=== PATIENT | female | born 1945 | race Caucasian/White ===

== ENCOUNTER 2017-04-08 07:06 | Day surgery (SDC) | payer MEDICARE, OTHER ==
[~2017-04-08] VITALS: Ht 162.6 cm; Wt 80.3 kg
[~2017-04-08 07:06] MED LIST: BREO1INH INH; ESTR3TA PO; MIRA0.5T PO; SING10TA32 PO; VITA1CAP40 PO
[2017-04-08] MEDS ORDERED: NS 500 ML IV ONE (07:30)
[2017-04-08] MEDS ORDERED: LIDOCAINE 2% INJ 100 MG/5 ML SDV (FOR ANES.) As Ordered ONE (08:24)
[2017-04-08] MEDS ORDERED: PROPOFOL 200 MG/20 ML VIAL As Ordered ONE (08:24)
--- NOTE | 2017-04-08 08:37 | ROOR ---
Patient Name: Lyn Avendaño Procedure Date: 04/08/2017 8:17 AM Date of : 1945 Age: 71 Room: [facility] Gender: Female Note Status: Finalized Procedure: Colonoscopy Indications: Screening for colorectal malignant neoplasm Providers: Jl SOTO MD Referring MD: MICHELLE JOHN MD Requesting Provider: Medicines: Monitored Anesthesia Care Complications: No immediate complications. Procedure: Pre-Anesthesia Assessment: - The heart rate, respiratory rate, oxygen saturations, blood pressure, adequacy of pulmonary ventilation, and response to care were monitored throughout the procedure. The Colonoscope was introduced through the anus and advanced to the terminal ileum, with identification of the appendiceal orifice and IC valve. The colonoscopy was performed without difficulty. The patient tolerated the procedure well. The quality of the bowel preparation was good. Findings: The perianal and digital rectal examinations were normal. (Exam: Complete, Prep: Good or Excellent.) A 4 mm polyp was found in the sigmoid colon. The polyp was sessile. The polyp was removed with a cold snare. Resection and retrieval were complete. Mild diverticulosis and small internal hemorrhoids. The exam was otherwise without abnormality on direct and retroflexion views. Impression: - (Exam: Complete, Prep: Good or Excellent.) - One 4 mm polyp in the sigmoid colon, removed with a cold snare. Resected and retrieved. - Mild diverticulosis and small internal hemorrhoids. - The examination was otherwise normal on direct and retroflexion views. Recommendation: - Repeat colonoscopy in 5 years for surveillance. - Telephone endoscopist for pathology results in 2 weeks. Jl Soto MD Jl SOTO MD 04/08/2017 8:37:19 AM This report has been signed electronically. Number of Addenda: 0 Note Initiated On: 04/08/2017 8:17 AM Estimated Blood Loss: Estimated blood loss: none.
[2017-04-08 09:01] VITALS: BP 167/94
== END 2017-04-08 09:03 | disposition home or self-care (01) ==
LOC: M OPP 07:06
PROVIDERS: ATTEND Internal Medicine Gastroenterology
DX: Z12.11 Encounter for screening for malignant neoplasm of colon (principal); D12.5 Benign neoplasm of sigmoid colon; K57.30 Diverticulosis of large intestine without perforation or abscess without bleeding; K64.8 Other hemorrhoids; M19.90 Unspecified osteoarthritis, unspecified site; J45.909 Unspecified asthma, uncomplicated; G25.81 Restless legs syndrome; Z88.0 Allergy status to penicillin; Z88.8 Allergy status to other drugs, medicaments and biological substances; Z79.899 Other long term (current) drug therapy; Z80.8 Family history of malignant neoplasm of other organs or systems; Z80.1 Family history of malignant neoplasm of trachea, bronchus and lung

== ENCOUNTER → 2019-01-05 | Outpatient (CLI) | payer MEDICARE, OTHER ==
[~2019-01-05] MED LIST changes: -VITA1CAP40 PO; +VITA50005 PO
--- NOTE | 2019-01-05 09:22 | REP ---
PA and lateral chest: Comparison is 04/21/2016. The lung rios are chronically hyperinflated, unchanged. There are no infiltrates or effusions. There are no masses or nodules. Cardiac size is normal. The eveline, mediastinum, skeletal structures are unremarkable. Impression: Chronic hyperinflation. There are no acute cardiopulmonary findings. Electronically Signed by Siva Pina MD 01/05/2019 09:13 A
== END ==
LOC: M WUC 08:49
PROVIDERS: ATTEND Internal Medicine
DX: J45.909 Unspecified asthma, uncomplicated (principal)

== ENCOUNTER → 2019-08-14 | Outpatient (CLI) | payer MEDICARE, OTHER ==
--- NOTE | 2019-08-14 17:38 | REP ---
Chest x-ray: Two views. History: Cough and shortness of breath. Comparison chest x-ray: January 05, 2019. Findings: There is linear fibrosis in the right lower lobe unchanged. There is plate-like atelectasis in the left base which is a new finding from the prior study. Lung rios are otherwise clear. Pulmonary vasculature is not increased. Heart is not enlarged. Aorta is calcific. Impression: New plate-like atelectasis left base. Linear fibrosis right base unchanged. No other evidence of infiltrate. Electronically Signed by Esequiel Pinzon MD 08/14/2019 05:29 P
== END ==
LOC: M WUC 16:47
PROVIDERS: ATTEND Internal Medicine
DX: J98.11 Atelectasis (principal); J84.10 Pulmonary fibrosis, unspecified; R06.02 Shortness of breath

== ENCOUNTER → 2019-11-10 | Outpatient (CLI) | payer MEDICARE, OTHER ==
[2019-11-14 23:07] LABS: D001-IgE D pteronyssinus <0.10 kU/L (Class 0); E001-IgE Cat Epith/Dander < 0.10 kU/L (Class 0); E005-IgE Dog Dander < 0.10 kU/L (Class 0); G002-IgE Bermuda Grass < 0.10 kU/L (Class 0); G008-IgE Kentucky Bluegrass < 0.10 kU/L (Class 0); M001-IgE Penicillium chrysogen < 0.10 kU/L (Class 0); M002 IgE Cladosporium herbaru < 0.10 kU/L (Class 0); M003 IgE Aspergillus fumigatu < 0.10 kU/L (Class 0); M006-IgE Alternaria alternata < 0.10 kU/L (Class 0); T001-IgE Maple/Box Elder < 0.10 kU/L (Class 0); T003-IgE Common Silver Birch < 0.10 kU/L (Class 0); T006-IgE Cedar, Mountain < 0.10 kU/L (Class 0); T007-IgE Oak, White < 0.10 kU/L (Class 0); T008-IgE Elm, American < 0.10 kU/L (Class 0); T015-IgE Ash, White < 0.10 kU/L (Class 0); T041-IgE Hickory, White < 0.10 kU/L (Class 0); T070-IgE White Mulberry < 0.10 kU/L (Class 0); W001-IgE Ragweed, Short < 0.10 kU/L (Class 0); W009-IgE Plantain, English < 0.10 kU/L (Class 0); W014-IgE Pigweed, Rough < 0.10 kU/L (Class 0); W018-IgE Sheep Sorrel < 0.10 kU/L (Class 0)
== END ==
LOC: M WUC 09:54
PROVIDERS: ATTEND Internal Medicine Pulmonary Disease
DX: J45.40 Moderate persistent asthma, uncomplicated (principal)

== ENCOUNTER 2020-01-04 13:56 | Outpatient (CLI) | payer MEDICARE, OTHER ==
[~2020-01-04] VITALS: Ht 170.2 cm; Wt 89.4 kg
[2020-01-04 14:26] VITALS: BP 149/74
[2020-01-04] MEDS ORDERED: BENRALIZUMAB (FASENRA) 30MG/ML SYRINGE (J0517 PER 1MG) SC ONE (14:30)
[2020-01-04 15:15] VITALS: BP 129/76
[2020-03-07] MEDS ORDERED: VENL150C43 PO (14:44)
[2020-03-07] MEDS ORDERED: FLUTISP (14:44)
[2020-03-07] MEDS ORDERED: FASE30IN SC (14:44)
[2020-03-07] MEDS ORDERED: ADV500INH INH (14:44)
== END 2020-01-04 15:20 | disposition home or self-care (01) ==
LOC: M INFU 13:56
PROVIDERS: ATTEND Internal Medicine Pulmonary Disease
DX: J45.50 Severe persistent asthma, uncomplicated (principal)
CPT/HCPCS: 96372; J0517

== ENCOUNTER 2020-02-01 14:00 | Outpatient (CLI) | payer MEDICARE, OTHER ==
[2020-02-01] MEDS ORDERED: BENRALIZUMAB (FASENRA) 30MG/ML SYRINGE (J0517 PER 1MG) ONE (14:01)
[2020-03-07] MEDS ORDERED: VENL150C43 PO (14:44)
[2020-03-07] MEDS ORDERED: ADV500INH INH (14:44)
[2020-03-07] MEDS ORDERED: FLUTISP (14:44)
[2020-03-07] MEDS ORDERED: FASE30IN SC (14:44)
== END 2020-02-01 14:45 ==
LOC: M INFU 14:00
PROVIDERS: ATTEND Internal Medicine Pulmonary Disease
DX: J45.50 Severe persistent asthma, uncomplicated (principal)
CPT/HCPCS: 96372; J0517

== ENCOUNTER 2020-02-29 13:53 | Outpatient (CLI) | payer MEDICARE, OTHER ==
[~2020-02-29] VITALS: Ht 170.2 cm; Wt 89.0 kg
[2020-02-29] MEDS ORDERED: BENRALIZUMAB (FASENRA) 30MG/ML SYRINGE (J0517 PER 1MG) SC ONE (14:00)
[2020-02-29 14:24] VITALS: BP 140/74
[2020-02-29] MEDS ORDERED: CLAR10CA3 PO (14:24)
[2020-02-29 14:30] VITALS: BP 141/67
[2020-03-07] MEDS ORDERED: ADV500INH INH (14:44)
[2020-03-07] MEDS ORDERED: FASE30IN SC (14:44)
[2020-03-07] MEDS ORDERED: FLUTISP (14:44)
[2020-03-07] MEDS ORDERED: VENL150C43 PO (14:44)
== END 2020-02-29 14:30 | disposition home or self-care (01) ==
LOC: M INFU 13:53
PROVIDERS: ATTEND Internal Medicine Pulmonary Disease
DX: J45.50 Severe persistent asthma, uncomplicated (principal)
CPT/HCPCS: 96372; J0517

== ENCOUNTER → 2020-03-09 | Outpatient (CLI) | payer MEDICARE, OTHER ==
[~2020-03-09] MED LIST changes: +ADV500INH INH; +CLAR10CA3 PO; +FASE30IN SC; +FLUTISP; +VENL150C43 PO
== END ==
LOC: M LABSMTC 11:04
PROVIDERS: ATTEND Ophthalmology
DX: Z01.812 Encounter for preprocedural laboratory examination (principal); Z20.828 Contact with and (suspected) exposure to other viral communicable diseases
CPT/HCPCS: C9803; U0003

== ENCOUNTER 2020-03-14 09:42 | Day surgery (SDC) | payer MEDICARE, OTHER ==
[~2020-03-14] VITALS: Ht 167.6 cm; Wt 86.2 kg
[~2020-03-14 09:42] MED LIST changes: +DUOVISC (0.50ML VISCOAT/0.55ML PROVISC) OPHTH KIT As Ordered ONE; +OFLOXACIN 0.3 % (OCUFLOX) OPTH SOL 5ML OD ONE; +PHENYLEPHRINE 2.5% OPHTH SOL 2ML OD ONE; +POVIDONE-IODINE 5% OPHTH PREP SOL 30ML As Ordered ONE; +PROPARACAINE 0.5% OPHTH SOL 15ML OD ONE; +TROPICAMIDE 1% OPHTH SOLN 2ML OD ONE
[2020-03-14] MEDS ORDERED: BSS IRR 500ML/OMIDRIA 4ML IRR BAG (OR ONLY) (J1097 PER ML) As Ordered ONE (10:13)
[2020-03-14] MEDS ORDERED: MIDAZOLAM INJ 2MG/2ML VIAL (J2250 PER 1MG) As Ordered ONE (10:59)
[2020-03-14] MEDS ORDERED: fentaNYL 100 MCG/2 ML INJECTION (J3010) As Ordered ONE (10:59)
[2020-03-14 12:10] VITALS: BP 160/76
== END 2020-03-14 12:15 | disposition home or self-care (01) ==
LOC: M SDC 09:42
PROVIDERS: ATTEND Ophthalmology
DX: H25.11 Age-related nuclear cataract, right eye (principal); J45.909 Unspecified asthma, uncomplicated; Z79.899 Other long term (current) drug therapy; Z88.0 Allergy status to penicillin; Z88.8 Allergy status to other drugs, medicaments and biological substances
CPT/HCPCS: 66984; J1097; J2250; J3010; V2788

== ENCOUNTER → 2020-03-16 | Outpatient (CLI) | payer MEDICARE, OTHER ==
[~2020-03-16] MED LIST changes: -DUOVISC (0.50ML VISCOAT/0.55ML PROVISC) OPHTH KIT As Ordered ONE; -OFLOXACIN 0.3 % (OCUFLOX) OPTH SOL 5ML OD ONE; -PHENYLEPHRINE 2.5% OPHTH SOL 2ML OD ONE; -POVIDONE-IODINE 5% OPHTH PREP SOL 30ML As Ordered ONE; -PROPARACAINE 0.5% OPHTH SOL 15ML OD ONE; -TROPICAMIDE 1% OPHTH SOLN 2ML OD ONE
== END ==
LOC: M LABSMTC 08:06
PROVIDERS: ATTEND Anesthesiology
DX: Z01.812 Encounter for preprocedural laboratory examination (principal); Z20.828 Contact with and (suspected) exposure to other viral communicable diseases
CPT/HCPCS: C9803; U0003

== ENCOUNTER 2020-03-21 07:16 | Day surgery (SDC) | payer MEDICARE, OTHER ==
[~2020-03-21] VITALS: Ht 167.6 cm; Wt 86.6 kg
[~2020-03-21 07:16] MED LIST changes: +BSS IRR 500ML/OMIDRIA 4ML IRR BAG (OR ONLY) (J1097 PER ML) As Ordered ONE; +DUOVISC (0.50ML VISCOAT/0.55ML PROVISC) OPHTH KIT As Ordered ONE; +OFLOXACIN 0.3 % (OCUFLOX) OPTH SOL 5ML OS ONE; +PHENYLEPHRINE 2.5% OPHTH SOL 2ML OS ONE; +POVIDONE-IODINE 5% OPHTH PREP SOL 30ML As Ordered ONE; +PROPARACAINE 0.5% OPHTH SOL 15ML OS ONE; +TROPICAMIDE 1% OPHTH SOLN 2ML OS ONE
[2020-03-21] MEDS ORDERED: fentaNYL 100 MCG/2 ML INJECTION (J3010) As Ordered ONE (08:19)
[2020-03-21] MEDS ORDERED: MIDAZOLAM INJ 2MG/2ML VIAL (J2250 PER 1MG) As Ordered ONE (08:19)
[2020-03-21 09:28] VITALS: BP 150/71
== END 2020-03-21 09:32 | disposition home or self-care (01) ==
LOC: M SDC 07:16
PROVIDERS: ATTEND Ophthalmology
DX: H25.12 Age-related nuclear cataract, left eye (principal); J45.909 Unspecified asthma, uncomplicated; Z88.0 Allergy status to penicillin; Z79.899 Other long term (current) drug therapy
CPT/HCPCS: 66984; J1097; J2250; J3010; V2788

== ENCOUNTER 2020-04-25 14:00 | Outpatient (CLI) | payer MEDICARE, OTHER ==
[~2020-04-25] VITALS: Ht 170.2 cm; Wt 89.4 kg
[~2020-04-25 14:00] MED LIST changes: +BENRALIZUMAB (FASENRA) 30MG/ML SYRINGE (J0517 PER 1MG) SC ONE; -BSS IRR 500ML/OMIDRIA 4ML IRR BAG (OR ONLY) (J1097 PER ML) As Ordered ONE; -DUOVISC (0.50ML VISCOAT/0.55ML PROVISC) OPHTH KIT As Ordered ONE; -OFLOXACIN 0.3 % (OCUFLOX) OPTH SOL 5ML OS ONE; -PHENYLEPHRINE 2.5% OPHTH SOL 2ML OS ONE; -POVIDONE-IODINE 5% OPHTH PREP SOL 30ML As Ordered ONE; -PROPARACAINE 0.5% OPHTH SOL 15ML OS ONE; -TROPICAMIDE 1% OPHTH SOLN 2ML OS ONE
[2020-04-25 14:17] VITALS: BP 142/67
== END 2020-04-25 14:15 | disposition home or self-care (01) ==
LOC: M INFU 14:00
PROVIDERS: ATTEND Internal Medicine Pulmonary Disease
DX: J45.50 Severe persistent asthma, uncomplicated (principal); J30.9 Allergic rhinitis, unspecified; Z88.0 Allergy status to penicillin
CPT/HCPCS: 96372; J0517

== ENCOUNTER 2020-06-19 13:50 | Outpatient (CLI) | payer MEDICARE, OTHER ==
[~2020-06-19] VITALS: Ht 170.2 cm; Wt 89.3 kg
[~2020-06-19 13:50] MED LIST changes: -BENRALIZUMAB (FASENRA) 30MG/ML SYRINGE (J0517 PER 1MG) SC ONE
[2020-06-19 14:00] VITALS: BP 172/81
[2020-06-19] MEDS ORDERED: BENRALIZUMAB (FASENRA) 30MG/ML SYRINGE (J0517 PER 1MG) SC ONE (14:00)
== END 2020-06-19 14:10 | disposition home or self-care (01) ==
LOC: M INFU 13:50
PROVIDERS: ATTEND Internal Medicine Pulmonary Disease
DX: J45.50 Severe persistent asthma, uncomplicated (principal); J30.9 Allergic rhinitis, unspecified; Z88.0 Allergy status to penicillin; Z88.8 Allergy status to other drugs, medicaments and biological substances
CPT/HCPCS: 96372; J0517

== ENCOUNTER 2020-08-16 14:18 | Outpatient (CLI) | payer MEDICARE, OTHER ==
[~2020-08-16] VITALS: Ht 170.2 cm; Wt 89.3 kg
[~2020-08-16 14:18] MED LIST changes: +BENRALIZUMAB (FASENRA) 30MG/ML SYRINGE (J0517 PER 1MG) SC ONE
[2020-08-16 14:30] VITALS: BP 134/75
[2020-08-16 15:00] VITALS: BP 132/76
== END 2020-08-16 15:00 | disposition home or self-care (01) ==
LOC: M INFU 14:18
PROVIDERS: ATTEND Internal Medicine Pulmonary Disease
DX: J45.50 Severe persistent asthma, uncomplicated (principal); Z88.0 Allergy status to penicillin; Z88.1 Allergy status to other antibiotic agents
CPT/HCPCS: 96372; J0517

== ENCOUNTER 2020-10-09 14:00 | Outpatient (CLI) | payer MEDICARE, OTHER ==
[~2020-10-09] VITALS: Ht 170.2 cm; Wt 86.6 kg
[~2020-10-09 14:00] MED LIST changes: -BENRALIZUMAB (FASENRA) 30MG/ML SYRINGE (J0517 PER 1MG) SC ONE; +BENRALIZUMAB 30 MG/ML SC ONE
[2020-10-09 14:23] VITALS: BP 167/85
== END 2020-10-09 14:20 | disposition home or self-care (01) ==
LOC: M INFU 14:00
PROVIDERS: ATTEND Internal Medicine Pulmonary Disease
DX: J45.40 Moderate persistent asthma, uncomplicated (principal); Z88.0 Allergy status to penicillin
CPT/HCPCS: 96372; J0517

== ENCOUNTER 2021-02-22 09:33 | Emergency (ER) | payer MEDICARE, OTHER ==
[~2021-02-22] VITALS: Ht 167.6 cm; Wt 86.7 kg
[~2021-02-22 09:33] MED LIST changes: -BENRALIZUMAB 30 MG/ML SC ONE
[2021-02-22 11:02] LABS: BASO % 0.2 % (0.0-1.0); HEMOGLOBIN 13.2 g/dl (12.0-15.5); LYMPH # 1.2 10^3/uL (1.5-5.0); LYMPH % 22.2 % (24.0-44.0); MEAN CORPUSCULAR HEMOGLOBIN 29.5 pg (27.0-33.0); MEAN CORPUSCULAR HGB CONC 32.2 g/dl (32.0-36.5); MEAN CORPUSCULAR VOLUME 91.7 fl (80.0-96.0); MONO # 0.5 10^3/uL (0.0-0.8); MONO % 8.5 % (2.0-8.0); NEUTROPHILS # 3.7 10^3/uL (1.5-8.5); NEUTROPHILS % 68.9 % (36.0-66.0); PLATELET COUNT, AUTOMATED 189 10^3/uL (150-450); RED BLOOD COUNT 4.47 10^6/uL (4.00-5.40); WHITE BLOOD COUNT 5.3 10^3/uL (4.0-10.0)
[2021-02-22 11:35] LABS: BLOOD UREA NITROGEN 15 MG/DL (7-18); CALCIUM LEVEL 8.1 MG/DL (8.8-10.2); CARBON DIOXIDE LEVEL 23 MEQ/L (21-32); CHLORIDE LEVEL 108 MEQ/L (98-107); CREATININE FOR GFR 0.76 MG/DL (0.55-1.30); GLOMERULAR FILTRATION RATE > 60.0 (>39); GLUCOSE, FASTING 95 MG/DL (70-100); SODIUM LEVEL 141 MEQ/L (136-145)
[2021-02-22 14:42] VITALS: BP 132/78
== END 2021-02-22 14:44 | disposition home or self-care (01) ==
LOC: M ED 09:33
DX: U07.1 COVID-19 (principal); Z88.0 Allergy status to penicillin; Z88.8 Allergy status to other drugs, medicaments and biological substances; Z79.899 Other long term (current) drug therapy
CPT/HCPCS: 36415; 80048; 85025; 99283; M0243

== ENCOUNTER 2021-02-22 15:20 | Outpatient (CLI) | payer MEDICARE, OTHER ==
[2021-02-22] VITALS (7 sets, daily range): BP systolic 141–166; BP diastolic 72–77
--- NOTE | 2021-02-22 11:27 | CR.PDOC ---
General Date of Consultation: Feb 22, 2021 Consultation REASON FOR CONSULTATION/CHIEF COMPLAINT: shortness of breath, COVID-19 positive HISTORY OF PRESENT ILLNESS: 75-year-old female with past medical history of asthma presents for 1 week history of worsening cough, runny nose, shortness of breath with dyspnea on exertion. Patient symptoms began on February 15, she was seen at an outpatient facility and tested positive for COVID on February 20. She denies chest pain, headaches, abdominal pain, nausea, vomiting, diarrhea, or depressed mood. She denies any sick contacts or recent travel. She has not been vaccinated for COVID-19. ALLERGIES: Please see below. HOME MEDICATIONS: Please see below. PAST MEDICAL HISTORY: Asthma FAMILY HISTORY: Father: Reviewed and non-contributory Mother: Reviewed and non-contributory SOCIAL HISTORY: Denies any substance abuse including alcohol and nicotine. REVIEW OF SYSTEMS: Negative except as per HPI PHYSICAL EXAMINATION: Vital Signs: reviewed and within normal limits General: NAD, lying comfortably in bed HEENT: NC/AT, EOMI Neck: supple, no masses Chest: lungs CTA B/L Heart: +S1S2, RRR Abd: soft, NT, ND, +BS Ext: no edema Skin: no rashes MSK: full ROM at large joints Neuro: no gross focal deficits Psych: AAOx3 LABORATORY DATA: Please see below. ASSESSMENT/PLAN: 75F presents for upper respiratory symptoms including rhinorrhea, cough, SOB for past one week. Tested positive for COVID-19 02/20/2021, has not been vaccinated. #COVID-19 - admit for monoclonal antibody therapy Allergies Coded Allergies: Quinolones (Verified Allergy, Severe, FACIAL EDEMA AND FLUSHING, 03/21/20) Penicillins (Verified Allergy, Unknown, 03/21/20) Home Medications Scheduled Benralizumab (Fasenra) 30 Mg/1 Ml Syringe, 30 MG SC QMONTH, (Reported) Conjugated Estrogens (Premarin) 0.3 Mg Tab, 0.3 MG PO DAILY, (Reported) Fluticasone Propionate (Fluticasone Propionate) 16 Gm Ellis.susp, 1 SPRAY NA DAILY, #1 (Reported) Loratadine (Claritin) 10 Mg Capsule, 1 CAP PO DAILY for allergy symptoms for 30 Days, #30 (Reported) Montelukast Sodium (Singulair) 10 Mg Tab, 10 MG PO QHS, (Reported) Pramipexole Di-HCl (Mirapex) 0.5 Mg Tab, 0.5 MG PO QHS, (Reported) Salmeterol/Fluticasone (Advair 500-50 Diskus) 1 Each Blst.w.dev, 1 PUFF INH BID, (Reported) Venlafaxine HCl (Venlafaxine HCl ER) 150 Mg Cap.er.24h, 150 MG PO DAILY, (Reported) RAFI BEYER MD Feb 22, 2021 11:27
[~2021-02-22 15:20] MED LIST changes: +ALBUTEROL 90 MCG/ACT 8GM HFA INHALER INH PRN; +ALBUTEROL SULFATE 2.5 MG/0.5 ML INH NEB SOLN INH PRN; +CASIRIVIMAB/IMDEVIMAB 1,200 MG in NS 250 ML IV ONE; +EPINEPHrine INJ 1 MG/ML 1ML AMP IM PRN; +NS 1,000 ML IV SCH; +diphenhydrAMINE 50MG/ML VIAL (J1200) IV PRN; +methylPREDNISolone 125MG 2ML VIAL IV PRN
== END 2021-02-22 18:50 | disposition home or self-care (01) ==
LOC: M OPCLI4 15:20 → M ICU 15:20 → M OPCLI4 18:50
PROVIDERS: ATTEND Internal Medicine
DX: U07.1 COVID-19 (principal)

== ENCOUNTER → 2021-05-09 | Outpatient (CLI) | payer MEDICARE, OTHER ==
[~2021-05-09] MED LIST changes: -ALBUTEROL 90 MCG/ACT 8GM HFA INHALER INH PRN; -ALBUTEROL SULFATE 2.5 MG/0.5 ML INH NEB SOLN INH PRN; -CASIRIVIMAB/IMDEVIMAB 1,200 MG in NS 250 ML IV ONE; -EPINEPHrine INJ 1 MG/ML 1ML AMP IM PRN; -NS 1,000 ML IV SCH; -diphenhydrAMINE 50MG/ML VIAL (J1200) IV PRN; -methylPREDNISolone 125MG 2ML VIAL IV PRN
--- NOTE | 2021-05-09 16:55 | REP ---
INDICATION: SCREEN MAMMO. COMPARISON: Multiple prior screening examinations, the most recent, TECHNIQUE: Digital screening (2D) mammography was performed bilaterally in the CC and MLO projections. Additionally, breast tomosynthesis (3D mammography) was performed bilaterally in the CC and MLO projections. FINDINGS: By history, the patient has no complaints of a palpable breast abnormality or other significant breast complaints. The Volpara volumetric breast density pattern is B, there are scattered areas of fibroglandular density. In the posterior 3rd of the left breast directly deep to and lateral to the nipple, at the 3 o'clock position, there is an oval, circumscribed, isodense mass measuring 7 mm in diameter. The right breast has a stable appearance. IMPRESSION: BIRADS/ACR : Category 0: Incomplete, need additional imaging evaluation. This patient's Tyrer-Cuzick lifetime breast cancer risk assessment score is 2.6%. This mammogram was interpreted with the aid of an FDA-approved computer-aided detection system. The patient states she has not had a clinical breast exam in greater than 1 year. The patient letter being requested is M0. RECOMMENDATION: 2D and 3D focal compression spot images of the left breast in the CC and MLO orientations, and ultrasound. <Electronically signed by Wai Howell > 05/09/21 [id number]
== END ==
LOC: M WHC 14:15
PROVIDERS: ATTEND Internal Medicine
DX: Z12.31 Encounter for screening mammogram for malignant neoplasm of breast (principal)

== ENCOUNTER → 2021-06-05 | Outpatient (CLI) | payer MEDICARE, OTHER ==
--- NOTE | 2021-06-05 14:24 | REP ---
INDICATION: LEFT BREAST ADD VIEWS. Left breast mass. COMPARISON: Screening mammogram, 05/09/2021. TECHNIQUE: 2D and 3D spot compression images of the left breast were obtained in the CC and MLO orientations. Targeted ultrasound of the left breast was performed. FINDINGS: In the middle 3rd of the left breast directly deep to and just below the nipple, at the 3 to 4 o'clock position, 10-12 cm from the nipple, there is an oval, circumscribed, isodense mass measuring 8 mm in diameter. Left breast ultrasound: 2-3 o'clock, 9 cm from the nipple, 7 x 6 x 5 mm, oval, parallel, circumscribed, hypoechoic mass with no posterior features. Shear wave elastography measures 9.56 KPA. 2 o'clock, 9 cm from the nipple, 7 x 6 x 4 mm, complicated cyst. Shear wave elastography measures 14.1 KPA. IMPRESSION: BIRADS/ACR : Category 3: Probably benign. The patient letter being requested is M3. RECOMMENDATION: Six-month follow-up mammographic and ultrasound evaluation of the left breast. <Electronically signed by Wai Howell > 06/05/21 [id number]
== END ==
LOC: M WHC 10:02
PROVIDERS: ATTEND Internal Medicine
DX: Z12.31 Encounter for screening mammogram for malignant neoplasm of breast (principal); N64.89 Other specified disorders of breast
CPT/HCPCS: 76642; 77065; G0279

== ENCOUNTER → 2021-11-11 | Outpatient (CLI) | payer MEDICARE, OTHER | LOC: M WUC 13:58 | PROVIDERS: ATTEND Internal Medicine | DX: M54.9 Dorsalgia, unspecified (principal) ==

== ENCOUNTER → 2021-11-19 | Outpatient (CLI) | payer MEDICARE, OTHER | LOC: M WUC 11:42 | PROVIDERS: ATTEND Internal Medicine | DX: J45.909 Unspecified asthma, uncomplicated (principal) ==

== ENCOUNTER → 2021-12-04 | Outpatient (CLI) | payer MEDICARE, OTHER | LOC: M WHC 10:00 | PROVIDERS: ATTEND Internal Medicine | DX: Z12.31 Encounter for screening mammogram for malignant neoplasm of breast (principal) | CPT/HCPCS: 76642; 77065; G0279 ==

== ENCOUNTER → 2022-04-08 | Outpatient (CLI) | payer MEDICARE, OTHER ==
[2022-04-08 17:44] LABS: BASO % 0.5 % (0.0-1.0); EOS # 0.7 10^3/uL (0.0-0.5); EOS % 8.8 % (0.0-3.0); HEMATOCRIT 40.2 % (36.0-47.0); HEMOGLOBIN 12.8 g/dl (12.0-15.5); LYMPH # 1.8 10^3/uL (1.5-5.0); LYMPH % 21.6 % (24.0-44.0); MEAN CORPUSCULAR HEMOGLOBIN 29.9 pg (27.0-33.0); MEAN CORPUSCULAR HGB CONC 31.8 g/dl (32.0-36.5); MEAN CORPUSCULAR VOLUME 93.9 fl (80.0-96.0); MONO # 0.6 10^3/uL (0.0-0.8); MONO % 7.1 % (2.0-8.0); NEUTROPHILS # 5.1 10^3/uL (1.5-8.5); NEUTROPHILS % 61.8 % (36.0-66.0); PLATELET COUNT, AUTOMATED 239 10^3/uL (150-450); RED BLOOD COUNT 4.28 10^6/uL (4.00-5.40); WHITE BLOOD COUNT 8.2 10^3/uL (4.0-10.0)
== END ==
LOC: M WUC 15:40
PROVIDERS: ATTEND Internal Medicine Critical Care Medicine
DX: J45.40 Moderate persistent asthma, uncomplicated (principal)

== ENCOUNTER → 2022-06-08 | Outpatient (CLI) | payer MEDICARE, OTHER ==
[~2022-06-08] MED LIST changes: +ALBU8.5H INH; +FLUT1BLS6 INH; +MONT10TA97 PO; +PRAM0.5T4 PO; +VITC1TAB PO
== END ==
LOC: M WUC 15:00
PROVIDERS: ATTEND Internal Medicine
DX: J45.909 Unspecified asthma, uncomplicated (principal)

== ENCOUNTER → 2022-06-09 | Outpatient (CLI) | payer MEDICARE, OTHER | LOC: M WHC 14:33 | PROVIDERS: ATTEND Internal Medicine | DX: Z12.31 Encounter for screening mammogram for malignant neoplasm of breast (principal) ==

== ENCOUNTER → 2022-07-06 | Outpatient (CLI) | payer MEDICARE, OTHER | LOC: M RAD 15:17 | PROVIDERS: ATTEND Internal Medicine | DX: M79.601 Pain in right arm (principal) ==

== ENCOUNTER → 2022-07-09 | Outpatient (CLI) | payer MEDICARE, OTHER ==
[2022-07-09 16:41] LABS: ALBUMIN 3.7 G/DL (3.2-5.2); ALKALINE PHOSPHATASE 105 U/L (46-116); ALT/SGPT 31 U/L (7.0-40); AST/SGOT 26 U/L (<34); BILIRUBIN,TOTAL 0.2 MG/DL (0.3-1.2); BLOOD UREA NITROGEN 29 MG/DL (9-23); CALCIUM LEVEL 9.5 MG/DL (8.3-10.6); CARBON DIOXIDE LEVEL 29 MMOL/L (20-31); CHLORIDE LEVEL 108 MMOL/L (98-107); CREATININE FOR GFR 0.85 MG/DL (0.55-1.30); GLOMERULAR FILTRATION RATE > 60.0 (>39); GLUCOSE, FASTING 73 MG/DL (74-106); POTASSIUM SERUM 5.3 MMOL/L (3.5-5.1); SODIUM LEVEL 142 MMOL/L (136-145); TOTAL PROTEIN 6.8 G/DL (5.7-8.2)
[2022-07-09 16:45] LABS: HEMATOCRIT 41.7 % (36.0-47.0); HEMOGLOBIN 13.1 g/dl (12.0-15.5); MEAN CORPUSCULAR HEMOGLOBIN 29.6 pg (27.0-33.0); MEAN CORPUSCULAR HGB CONC 31.4 g/dl (32.0-36.5); MEAN CORPUSCULAR VOLUME 94.3 fl (80.0-96.0); PLATELET COUNT, AUTOMATED 267 10^3/uL (150-450); RED BLOOD COUNT 4.42 10^6/uL (4.00-5.40); WHITE BLOOD COUNT 11.5 10^3/uL (4.0-10.0)
== END ==
LOC: M WUC 13:35
PROVIDERS: ATTEND Internal Medicine
DX: R51.9 Headache, unspecified (principal)

== ENCOUNTER → 2022-07-20 | Outpatient (CLI) | payer MEDICARE, OTHER | LOC: M LABSMTC 10:17 | PROVIDERS: ATTEND Anesthesiology | DX: Z01.812 Encounter for preprocedural laboratory examination (principal); Z11.52 Encounter for screening for COVID-19 ==

== ENCOUNTER 2022-07-23 07:08 | Day surgery (SDC) | payer MEDICARE, OTHER ==
[~2022-07-23] VITALS: Ht 170.2 cm; Wt 81.6 kg
[~2022-07-23 07:08] MED LIST changes: +NS 1,000 ML IV ONE
[2022-07-23] MEDS ORDERED: LIDOCAINE 2% 100MG/5ML SDV (FOR ANES.) As Ordered ONE (08:06)
[2022-07-23] MEDS ORDERED: propofoL 200 MG/20 ML VIAL As Ordered ONE (08:06)
[2022-07-23 08:50] VITALS: BP 179/86
== END 2022-07-23 09:00 | disposition home or self-care (01) ==
LOC: M OPP 07:08
PROVIDERS: ATTEND Internal Medicine Gastroenterology
DX: Z12.11 Encounter for screening for malignant neoplasm of colon (principal); Z86.010 Personal history of colon polyps; Z80.0 Family history of malignant neoplasm of digestive organs; K64.8 Other hemorrhoids; K63.89 Other specified diseases of intestine; Z79.51 Long term (current) use of inhaled steroids; Z79.52 Long term (current) use of systemic steroids; Z79.810 Long term (current) use of selective estrogen receptor modulators (SERMs); Z79.899 Other long term (current) drug therapy; Z88.1 Allergy status to other antibiotic agents; Z88.8 Allergy status to other drugs, medicaments and biological substances; J45.909 Unspecified asthma, uncomplicated

== ENCOUNTER 2022-09-17 13:37 | Outpatient (CLI) | payer MEDICARE, OTHER ==
[~2022-09-17] VITALS: Ht 170.2 cm; Wt 80.5 kg
[~2022-09-17 13:37] MED LIST changes: +MONT-5 PO; -NS 1,000 ML IV ONE; -SING10TA32 PO
[2022-09-17] MEDS ORDERED: BENRALIZUMAB 30 MG/ML SC ONE (14:00)
== END 2022-09-17 14:20 | disposition home or self-care (01) ==
LOC: M INFU 13:37
PROVIDERS: ATTEND Internal Medicine Critical Care Medicine
DX: J45.40 Moderate persistent asthma, uncomplicated (principal); Z88.0 Allergy status to penicillin; Z88.8 Allergy status to other drugs, medicaments and biological substances
CPT/HCPCS: 96372; J0517

== ENCOUNTER 2022-09-24 13:55 | Outpatient (CLI) | payer MEDICARE, OTHER ==
[~2022-09-24] VITALS: Ht 170.2 cm; Wt 80.5 kg
[~2022-09-24 13:55] MED LIST changes: +FLUT50SP17; -FLUTISP
[2022-09-24] MEDS ORDERED: BENRALIZUMAB 30 MG/ML SC ONE (14:00)
[2022-09-24 14:06] VITALS: BP 174/81
== END 2022-09-24 14:08 | disposition home or self-care (01) ==
LOC: M INFU 13:55
PROVIDERS: ATTEND Internal Medicine Critical Care Medicine
DX: J45.40 Moderate persistent asthma, uncomplicated (principal); Z88.0 Allergy status to penicillin; Z88.8 Allergy status to other drugs, medicaments and biological substances
CPT/HCPCS: 96372; J0517

== ENCOUNTER 2022-10-01 14:10 | Outpatient (CLI) | payer MEDICARE, OTHER ==
[~2022-10-01] VITALS: Ht 170.2 cm; Wt 79.5 kg
[~2022-10-01 14:10] MED LIST changes: +BENRALIZUMAB 30 MG/ML SC ONE
[2022-10-01 14:15] VITALS: BP 148/73
[2022-10-01 14:30] VITALS: BP 130/67
== END 2022-10-01 14:30 ==
LOC: M INFU 14:10
PROVIDERS: ATTEND Internal Medicine Critical Care Medicine
DX: J45.40 Moderate persistent asthma, uncomplicated (principal); Z88.0 Allergy status to penicillin; Z88.8 Allergy status to other drugs, medicaments and biological substances
CPT/HCPCS: 96372; J0517

== ENCOUNTER → 2023-04-27 | Outpatient (CLI) | payer MEDICARE, OTHER ==
[~2023-04-27] MED LIST changes: -BENRALIZUMAB 30 MG/ML SC ONE
[2023-04-27 16:54] LABS: ALKALINE PHOSPHATASE 113 U/L (46-116); ALT/SGPT 18 U/L (7.0-40); AST/SGOT 20 U/L (<34); BILIRUBIN,TOTAL 0.3 MG/DL (0.3-1.2); BLOOD UREA NITROGEN 21 MG/DL (9-23); CALCIUM LEVEL 9.1 MG/DL (8.3-10.6); CARBON DIOXIDE LEVEL 28 MMOL/L (20-31); CHLORIDE LEVEL 105 MMOL/L (98-107); GLOMERULAR FILTRATION RATE > 60.0 (>39); GLUCOSE, FASTING 102 MG/DL (74-106); POTASSIUM SERUM 3.7 MMOL/L (3.5-5.1); SODIUM LEVEL 140 MMOL/L (136-145); TOTAL PROTEIN 6.9 G/DL (5.7-8.2)
[2023-04-27 16:56] LABS: THYROID STIMULATING HORMONE 0.802 uIU/ML (0.55-4.78)
[2023-04-27 16:57] LABS: HEMATOCRIT 40.8 % (36.0-47.0); HEMOGLOBIN 13.3 g/dl (12.0-15.5); MEAN CORPUSCULAR HEMOGLOBIN 29.7 pg (27.0-33.0); MEAN CORPUSCULAR HGB CONC 32.6 g/dl (32.0-36.5); MEAN CORPUSCULAR VOLUME 91.1 fl (80.0-96.0); PLATELET COUNT, AUTOMATED 249 10^3/uL (150-450); RED BLOOD COUNT 4.48 10^6/uL (4.00-5.40); WHITE BLOOD COUNT 8.3 10^3/uL (4.0-10.0)
== END ==
LOC: M WUC 14:06
PROVIDERS: ATTEND Internal Medicine
DX: R53.83 Other fatigue (principal); M54.9 Dorsalgia, unspecified

== ENCOUNTER → 2023-05-25 | Outpatient (CLI) | payer MEDICARE, OTHER ==
[~2023-05-25] MED LIST changes: -FLUT50SP17; +FLUTISP
[2023-05-25 17:37] LABS: C REACTIVE PROTEIN QUANTITATIV 0.6 MG/DL (<1.0)
[2023-05-25 17:42] LABS: CHOLESTEROL RISK RATIO 4.06 (<5); HDL CHOLESTEROL 56.1 MG/DL (>40); LDL CHOLESTEROL 138.5 MG/DL (<100); NON-HDL-C 171.9 MG/DL
== END ==
LOC: M WUC 11:52
PROVIDERS: ATTEND Internal Medicine
DX: E78.5 Hyperlipidemia, unspecified (principal); M54.9 Dorsalgia, unspecified

== ENCOUNTER → 2023-08-26 | Outpatient (CLI) | payer MEDICARE, OTHER | LOC: M RAD 13:18 | PROVIDERS: ATTEND Internal Medicine | DX: M45.9 Ankylosing spondylitis of unspecified sites in spine (principal) ==

== ENCOUNTER → 2023-12-28 | Outpatient (REF) | payer MEDICARE, OTHER ==
[2023-12-28 17:48] LABS: ALBUMIN 3.9 G/DL (3.2-5.2); ALKALINE PHOSPHATASE 120 U/L (46-116); ALT/SGPT 23 U/L (7.0-40); AST/SGOT 14 U/L (<34); BILIRUBIN,TOTAL 0.4 MG/DL (0.3-1.2); BLOOD UREA NITROGEN 21 MG/DL (9-23); CALCIUM LEVEL 9.6 MG/DL (8.3-10.6); CARBON DIOXIDE LEVEL 24 MMOL/L (20-31); CHLORIDE LEVEL 110 MMOL/L (98-107); CHOLESTEROL LEVEL 185 MG/DL (<200); CHOLESTEROL RISK RATIO 3.71 (<5); CREATININE FOR GFR 0.75 MG/DL (0.55-1.30); GLOMERULAR FILTRATION RATE > 60.0 (>39); GLUCOSE, FASTING 90 MG/DL (74-106); HDL CHOLESTEROL 49.8 MG/DL (>40); LDL CHOLESTEROL 115.2 MG/DL (<100); NON-HDL-C 135.2 MG/DL; POTASSIUM SERUM 4.4 MMOL/L (3.5-5.1); SODIUM LEVEL 142 MMOL/L (136-145); TOTAL PROTEIN 6.5 G/DL (5.7-8.2); TRIGLYCERIDES LEVEL 100 MG/DL (<150)
== END ==
LOC: M LABWUC 16:24
PROVIDERS: ATTEND Internal Medicine
DX: E78.5 Hyperlipidemia, unspecified (principal)

== ENCOUNTER → 2024-06-26 | Outpatient (CLI) | payer MEDICARE, OTHER ==
[~2024-06-26] MED LIST changes: -ADV500INH INH; +ADVA1AER10 INH
[2024-06-26 12:06] LABS: BASO % 0.3 % (0.0-1.0); EOS % 0.2 % (0.0-3.0); HEMATOCRIT 41.3 % (36.0-47.0); HEMOGLOBIN 13.3 g/dl (12.0-15.5); LYMPH # 1.9 10^3/uL (1.5-5.0); MEAN CORPUSCULAR HEMOGLOBIN 28.9 pg (27.0-33.0); MEAN CORPUSCULAR HGB CONC 32.2 g/dl (32.0-36.5); MEAN CORPUSCULAR VOLUME 89.8 fl (80.0-96.0); MONO # 0.5 10^3/uL (0.0-0.8); MONO % 7.6 % (2.0-8.0); NEUTROPHILS # 3.8 10^3/uL (1.5-8.5); NEUTROPHILS % 60.7 % (36.0-66.0); PLATELET COUNT, AUTOMATED 240 10^3/uL (150-450)
[2024-06-26 12:17] LABS: ALBUMIN 3.6 G/DL (3.2-5.2); ALKALINE PHOSPHATASE 109 U/L (35-104); ALT/SGPT 17 U/L (7.0-40); AST/SGOT 17 U/L (<34); BILIRUBIN,TOTAL 0.3 MG/DL (0.3-1.2); BLOOD UREA NITROGEN 22 MG/DL (9-23); CALCIUM LEVEL 9.8 MG/DL (8.3-10.6); CARBON DIOXIDE LEVEL 26 MMOL/L (20-31); CHLORIDE LEVEL 108 MMOL/L (98-107); GLOMERULAR FILTRATION RATE > 60.0 (>39); GLUCOSE, FASTING 105 MG/DL (74-106); SODIUM LEVEL 144 MMOL/L (136-145); THYROID STIMULATING HORMONE 1.708 uIU/ML (0.55-4.78); TOTAL PROTEIN 6.9 G/DL (5.7-8.2)
[2024-06-27 07:06] LABS: WHITE BLOOD COUNT 6.2 10^3/uL (4.0-10.0)
== END ==
LOC: M WUC 09:46
PROVIDERS: ATTEND Internal Medicine
DX: J45.909 Unspecified asthma, uncomplicated (principal); E07.9 Disorder of thyroid, unspecified